=== PATIENT | female | born 1955 | race Native Hawaiian/Other Pacific Islander ===

== ENCOUNTER 2018-11-10 12:12 | Observation (INO) | payer OTHER ==
[2018-11-10] MEDS ORDERED: Sodium Chloride 0.9% 500 ML IV STA (14:07)
[2018-11-10 14:59] LABS: BASO % 0.7 % (0.0-2.0); EOS # 0.1 K/uL (0.0-0.7); EOS % 1.4 % (0.0-4.0); HEMOGLOBIN 12.5 g/dL (12.0-16.0); LYMPH # 2.1 K/uL (1.0-4.3); LYMPH % 33.9 % (20.0-40.0); MEAN CELL VOLUME 94.7 fl (81.0-99.0); MEAN CORPUSCULAR HEMOGLOBIN 31.2 pg (27.0-31.0); MEAN CORPUSCULAR HGB CONC 32.9 g/dL (33.0-37.0); MEAN PLATELET VOLUME 7.2 fl (7.2-11.7); MONO # 0.6 K/uL (0.0-0.8); MONO % 9.3 % (0.0-10.0); NEUT # 3.4 K/uL (1.8-7.0); NEUT % 54.7 % (50.0-75.0); RBC 4.01 Mil/uL (3.80-5.20); RED CELL DISTRIBUTION WIDTH 13.4 % (11.5-14.5); WHITE BLOOD COUNT 6.3 K/uL (4.8-10.8)
--- NOTE | 2018-11-10 14:59 | ED PDOC ---
HPI: Chest Pain Time Seen by Provider: 11/10/18 13:58 Chief Complaint (Nursing): Chest Pain Chief Complaint (Provider): Chest pain History Per: Patient History/Exam Limitations: no limitations Onset/Duration Of Symptoms: Days (2 days ago) Additional Complaint(s): Pt. with chest pain wednesday evening that went away after 1 vomit episode. No pain since. Went to urgent care today and told to come to the ER for ACS eval. Pt. with no symptoms. No dyspnea, weakness, chest pain. Past Medical History Vital Signs: Last Vital Signs Temp 98.5 F 11/10/18 12:46 Pulse 74 11/10/18 12:46 Resp 16 11/10/18 12:46 BP 148/100 H 11/10/18 12:46 Pulse Ox 98 11/10/18 12:46 Primary Care Provider: Non [facility] Provider, - Medical History PMH: Diabetes, HTN, Hypercholesterolemia - Family History Family History: States: Unknown Family Hx - Immunization History Hx Tetanus Toxoid Vaccination: No Hx Influenza Vaccination: No Hx Pneumococcal Vaccination: No - Home Medications Home Medications: Ambulatory Orders Medication Instructions Recorded Amcard 2.5 mg DAILY 11/10/18 Glycomet 500 mg BID 11/10/18 Rosufit 10 mg DAILY 11/10/18 Volibo 0.2 mg DAILY 11/10/18 - Allergies Allergies/Adverse Reactions: Allergies Allergy/AdvReac Type Severity Reaction Status Date / Time No Known Allergies Allergy Verified 11/10/18 12:45 Review of Systems ROS Statement: Except As Marked, All Systems Reviewed And Found Negative Cardiovascular: Positive for: Chest Pain Gastrointestinal: Positive for: Nausea, Vomiting Physical Exam - Reviewed Nursing Documentation Reviewed: Yes Vital Signs Reviewed: Yes - Physical Exam Appears: Positive for: Well, Non-toxic, No Acute Distress Head Exam: Positive for: ATRAUMATIC, NORMAL INSPECTION, NORMOCEPHALIC Skin: Positive for: Normal Color, Warm, DRY Eye Exam: Positive for: EOMI, Normal appearance, PERRL ENT: Positive for: Normal ENT Inspection Neck: Positive for: Normal, Painless ROM Cardiovascular/Chest: Positive for: Regular Rate, Rhythm Respiratory: Positive for: CNT, Normal Breath Sounds Gastrointestinal/Abdominal: Positive for: Normal Exam, Soft. Negative for: Tenderness Back: Positive for: Normal Inspection. Negative for: L CVA Tenderness, R CVA Tenderness Extremity: Positive for: Normal ROM. Negative for: Tenderness, Pedal Edema Neurological/Psych: Positive for: Awake, Alert, Normal Tone - ECG ECG: Positive for: Interpreted By Me, Viewed By Me ECG Rhythm: Positive for: Right Bundle Branch Block O2 Sat by Pulse Oximetry: 98 Pulse Ox Interpretation: Normal - Progress ED Course And Treament: 1500: Dr. Lopez to take over care. Fu on labs and dispo. Disposition - Clinical Impression Clinical Impression: Chest pain - Patient ED Disposition Is Patient to be Admitted: Transfer of Care - Disposition Disposition Time: 15:00 Condition: STABLE Patient Signed Over To: Adonis Lopez Present On Arrival: None
[2018-11-10 15:04] LABS: PROTHROMBIN TIME 11.1 Seconds (9.8-13.1)
[2018-11-10 15:07] LABS: PARTIAL THROMBOPLASTIN TIME 43.4 Seconds (25.6-37.1)
[2018-11-10 15:11] LABS: ALB/GLOB RATIO 1.6 (1.0-2.1); ALBUMIN 4.9 g/dL (3.5-5.0); ALT/SGPT 39 U/L (9-52); AST/SGOT 47 U/L (14-36); BLOOD UREA NITROGEN 17 mg/dl (7-17); CALCIUM 9.5 mg/dL (8.4-10.2); GFR NON-AFRICAN AMERICAN > 60
--- NOTE | 2018-11-10 15:29 | ED PDOC ---
- Laboratory Results Result Diagrams: 11/11/18 04:50 11/11/18 04:50 Lab Results: PT 11.1 Seconds (9.8-13.1) 11/10/18 14:30 INR 1.0 11/10/18 14:30 APTT 43.4 Seconds (25.6-37.1) H 11/10/18 14:30 Troponin I < 0.0120 ng/mL (0.00-0.120) 11/10/18 14:30 Total Bilirubin 0.4 mg/dl (0.2-1.3) 11/10/18 14:30 AST 47 U/L (14-36) H 11/10/18 14:30 ALT 39 U/L (9-52) 11/10/18 14:30 Alkaline Phosphatase 50 U/L (38-126) 11/10/18 14:30 Total Protein 7.9 G/DL (6.3-8.2) 11/10/18 14:30 Albumin 4.9 g/dL (3.5-5.0) 11/10/18 14:30 Globulin 3.0 gm/dL (2.2-3.9) 11/10/18 14:30 Albumin/Globulin Ratio 1.6 (1.0-2.1) 11/10/18 14:30 - ECG O2 Sat by Pulse Oximetry: 98 Medical Decision Making Medical Decision Making: Time: 1500 --Patient is endorsed to provider by Dr. Reed, pending lab and imaging results. most likely admission. Time: 1535 --Labs reviewed: no significant clinical abnormality including (-) troponin. CXR: (-) active disease. Patient is medically stable for admission to telemetry unit. Time: 1538 --Case discussed with Dr. Patel who accepts patient for admission. Patient is agreeable to plan. Scribe Attestation: Documented by Annabel Nickerson, acting as a scribe for Adonis Lopez MD. Provider Scribe Attestation: All medical record entries made by the Scribe were at my direction and personally dictated by me. I have reviewed the chart and agree that the record accurately reflects my personal performance of the history, physical exam, medical decision making, and the department course for this patient. I have also personally directed, reviewed, and agree with the discharge instructions and disposition. Disposition Counseled Patient/Family Regarding: Studies Performed, Diagnosis - Clinical Impression Clinical Impression: Chest pain - POA Present On Arrival: None - Disposition Disposition: Hospitalized as Observation Patient Disposition Time: 15:30 Condition: STABLE
--- NOTE | 2018-11-10 15:49 | RAD ---
Date of service: 11/10/2018 HISTORY: dyspnea COMPARISON: No prior. FINDINGS: LUNGS: No active pulmonary disease. PLEURA: No significant pleural effusion identified, no pneumothorax apparent. CARDIOVASCULAR: No atherosclerotic calcification present Normal. OSSEOUS STRUCTURES: No significant abnormalities. VISUALIZED UPPER ABDOMEN: Normal. OTHER FINDINGS: None. IMPRESSION: No active disease. Concordant results with the preliminary interpretation rendered by the emergency department physician procedure.
[2018-11-10] MEDS ORDERED: ROSUVASTATIN PO SCH (22:00)
[2018-11-10] MEDS ORDERED: FENOFIBRATE PO SCH (22:00)
[2018-11-10 22:05] LABS: B-TYPE NATRIURETIC PEPTIDE 82.4 pg/ml (0-900)
[2018-11-11 05:17] VITALS: TEMP 97.7
[2018-11-11 06:19] LABS: MEAN CORPUSCULAR HEMOGLOBIN 31.1 pg (27.0-31.0); MEAN CORPUSCULAR HGB CONC 33.4 g/dL (33.0-37.0); RBC 3.84 Mil/uL (3.80-5.20); RED CELL DISTRIBUTION WIDTH 13.2 % (11.5-14.5); WHITE BLOOD COUNT 3.6 K/uL (4.8-10.8)
[2018-11-11 06:32] LABS: ALB/GLOB RATIO 1.6 (1.0-2.1); ALBUMIN 4.3 g/dL (3.5-5.0); ALT/SGPT 33 U/L (9-52); AST/SGOT 35 U/L (14-36); BLOOD UREA NITROGEN 17 mg/dl (7-17); CALCIUM 9.6 mg/dL (8.4-10.2); GFR NON-AFRICAN AMERICAN > 60
[2018-11-11 08:05] VITALS: BP 147/70; PULSE 63; RESP 19
--- NOTE | 2018-11-11 09:26 | CP.PCM.CON ---
History of Present Illness - History of Present Illness History of Present Illness: This 63-year-old female who is visiting from [place] came to the emergency room describing an episode of choking while eating her evening meal couple of days back. She was able to overcome this with much di fficulty and continued to experience discomfort in the upper chest. Eventually this settled down and she saw a local physician before making plans to travel back next week. He recommended a visit to the emergency room and she is hospitalized. She gives history of having had bilateral knee replacements and as part of her regular exercise habit she walks up to a mile every day and has never experienced any chest pain connected with physical activity. She gives history of being a hypertensive and diabetic and has been taking medicines for dyslipidemia in the form of a statin. She had never been a smoker and has never suffered a myocardial infarction. Physical examination shows an anxious elderly female who is lying flat in bed comfortable. Alert awake coherent afebrile with a heart rate of 64 bpm regular and a blood pressure of 144/74 mmHg. Her jugular venous pressure was not elevated and there was no edema over her lower extremities. The pedal pulses were well felt. There were no carotid bruits. The apex was in the fifth space the first and second heart sounds were normal there was no murmur or gallop. There were no rales. Her abdomen was soft liver and spleen were not palpable. Her electric cardiogram showed sinus rhythm with a pattern of right bundle branch block at the time of admission in the emergency room and again this morning. 3 sets of cardiac enzymes were negative for any evidence of myocyte injury. Atypical chest pain due to choking. No evidence of acute coronary syndrome. Hypertension diabetes mellitus and dyslipidemia. The patient may be allowed to return home and travel back to [facility]. I have recommended at that at some point she should have a stress test. Past Patient History - Past Medical History & Family History Past Medical History?: Yes - Past Social History Smoking Status: Never Smoked - CARDIAC Hx Cardiac Disorders: Yes - ENDOCRINE/METABOLIC Hx Endocrine Disorders: Yes - MUSCULOSKELETAL/RHEUMATOLOGICAL Hx Falls: No - PSYCHIATRIC Hx Substance Use: No - SURGICAL HISTORY Hx Herniorrhaphy: Yes Hx Orthopedic Surgery: Yes (bilateral knee replacement) - ANESTHESIA Hx Anesthesia: Yes Hx Anesthesia Reactions: No Meds Allergies/Adverse Reactions: Allergies Allergy/AdvReac Type Severity Reaction Status Date / Time No Known Allergies Allergy Verified 11/10/18 12:45 - Medications Medications: Current Medications Amlodipine Besylate (Norvasc) 2.[address] [facility] Last Admin: 11/11/18 08:40 Dose: 2.5 mg Atorvastatin Calcium (Lipitor) [address] [facility] Last Admin: 11/11/18 08:42 Dose: 20 mg Fenofibrate (Tricor) [address] [facility] Last Admin: 11/11/18 08:40 Dose: 145 mg Metformin HCl (Glucophage) [address] [facility] Last Admin: 11/11/18 08:40 Dose: 500 mg Results - Vital Signs Recent Vital Signs: Last Vital Signs Temp 97.7 F 11/11/18 08:05 Pulse 63 11/11/18 08:40 Resp 19 11/11/18 08:05 BP 147/70 11/11/18 08:40 Pulse Ox 99 11/11/18 08:05 - Labs Result Diagrams: 11/11/18 04:50 11/11/18 04:50 Labs: Laboratory Results - last 24 hr 11/10/18 11/10/18 11/10/18 14:30 14:30 14:30 WBC 6.3 RBC 4.01 Hgb 12.5 Hct 37.9 MCV 94.7 MCH 31.2 H MCHC 32.9 L RDW 13.4 Plt Count 275 MPV 7.2 Neut % (Auto) 54.7 Lymph % (Auto) 33.9 [place] % (Auto) 9.3 Eos % (Auto) 1.4 Baso % (Auto) 0.7 Neut # (Auto) 3.4 Lymph # (Auto) 2.1 [place] # (Auto) 0.6 Eos # (Auto) 0.1 Baso # (Auto) 0.0 PT 11.1 INR 1.0 APTT 43.4 H Sodium 139 Potassium 4.3 Chloride 100 Carbon Dioxide 29 Anion Gap 14 BUN 17 Creatinine 0.6 L Est GFR ( Amer) > 60 Est GFR (Non-Af Amer) > 60 Random Glucose 99 Calcium 9.5 Total Bilirubin 0.4 AST 47 H ALT 39 Alkaline Phosphatase 50 Troponin I < 0.0120 NT-Pro-B Natriuret Pep Total Protein 7.9 Albumin 4.9 Globulin 3.0 Albumin/Globulin Ratio 1.6 11/10/18 11/11/18 11/11/18 21:30 04:50 04:50 WBC 3.6 L RBC 3.84 Hgb 12.0 Hct 35.8 MCV 93.0 MCH 31.1 H MCHC 33.4 RDW 13.2 Plt Count 283 MPV Neut % (Auto) Lymph % (Auto) [place] % (Auto) Eos % (Auto) Baso % (Auto) Neut # (Auto) Lymph # (Auto) [place] # (Auto) Eos # (Auto) Baso # (Auto) PT INR APTT Sodium 139 Potassium 5.3 H Chloride 100 Carbon Dioxide 32 H Anion Gap 12 BUN 17 Creatinine 0.6 L Est GFR ( Amer) > 60 Est GFR (Non-Af Amer) > 60 Random Glucose 118 H Calcium 9.6 Total Bilirubin 0.4 AST 35 ALT 33 Alkaline Phosphatase 36 L D Troponin I < 0.0120 < 0.0120 NT-Pro-B Natriuret Pep 82.4 Total Protein 7.1 Albumin 4.3 Globulin 2.8 Albumin/Globulin Ratio 1.6
--- NOTE | 2018-11-11 10:49 | CARD ---
APPROVED REPORT Date of service: 11/11/2018 EKG Measurement Heart [id number] <Conclusion> Normal sinus rhythm Left axis deviation Right bundle branch block Abnormal ECG
--- NOTE | 2018-11-11 10:56 | CARD ---
APPROVED REPORT Date of service: 11/10/2018 EKG Measurement Heart [id number] <Conclusion> Normal sinus rhythm Right bundle branch block Left anterior fascicular block Bifascicular block Abnormal ECG
--- NOTE | 2018-11-11 10:57 | CP.PCM.PCO ---
Assessment & Plan - Assessment and Plan (Free Text) Assessment: pt. seen and examined feels well, denies sob, cp, dizziness, lungs CTA CV RRR, no m/r/g abd soft NT voiding w/o c/o aaox3, ambulating Trop neg x3 pt .seen by and cleared for d/c to home today pt. to f/u with next wednesday for outpatient echo, stress test, labs, lipid profile above d/w son/ patient
[2018-11-14 05:00] VITALS: O2SAT 98
== END 2018-11-11 11:39 | disposition home or self-care (01) ==
LOC: H.ER 12:12 → H.ERHOLD 15:36 → H.TEL 17:57
PROVIDERS: ADMIT Family Medicine; ATTEND Family Medicine
DX: R07.89 Other chest pain (principal); E11.9 Type 2 diabetes mellitus without complications; I10 Essential (primary) hypertension; E78.00 Pure hypercholesterolemia, unspecified; Z96.653 Presence of artificial knee joint, bilateral; E78.5 Hyperlipidemia, unspecified; I45.10 Unspecified right bundle-branch block
CPT/HCPCS: 36415; 71045; 80053; 83880; 84484; 85025; 85027; 85610; 85730; 93005; 99285; G0378; J7040